=== PATIENT | female | born 1965 | race African-American/Black ===

== ENCOUNTER 2016-08-30 09:19 | Emergency (ER) | payer MEDICAID ==
[~2016-08-30] VITALS: Ht 134.6 cm; Wt 109.1 kg
[~2016-08-30 09:19] MED LIST: ACET325T33 PO; AMLO-218 PO; ARIP15TA2 PO; ASPI81TA50 PO; ATOR20TA38 PO; CARV12.598 PO; CITA10TA72 PO; CLON-379 PO; EFV600C PO; ESOM40CA PO; FAMO20TA18 PO; GABA-526 PO; HAL2 PO; HYDR-3672 PO; INSU100C SC; LACT10SO5 PO; LANT3I SC; LEVO25TA53 PO; LORA1TAB PO; LOSA100T47 PO; MECL-77 PO; MTF1000T PO; MULT1TAB13 PO; OXYC-281 PO; POLY15DR42 BOTH EYES; TEMA15CA6 PO; TENO300T2 PO
[2016-08-30 09:25] VITALS: Ht 134.6 cm; Wt 109.1 kg
[2016-08-30] MEDS ORDERED: IPRATROPIUM (NEB) 0.5 MG/2.5 ML AMP INH STA (09:28)
[2016-08-30] MEDS ORDERED: ALBUTEROL 0.5% (NEB) 2.5 MG/0.5 ML AMP INH STA (09:28)
--- NOTE | 2016-08-30 09:59 | RADRPT ---
PROCEDURE: Chest 1 views. CLINICAL INDICATION: Chest pain TECHNIQUE: AP views of the chest was obtained. COMPARISON: December 11, 2014 FINDINGS: The heart is large. Elevation of the right hemidiaphragm appears chronic. Associated atelectasis/co nsolidation right middle and lower lobes is observed. Scattered atelectasis is noted in the left lo wer lobe. No pneumothorax as visualized. The osseous structures are osteopenic, but appear grossly intact. Degenerative changes are seen in the shoulders. IMPRESSION: Cardiomegaly . Chronic elevation of the right hemidiaphragm with associated atelectasis/consolidation of the right middle and lower lobes. Scattered atelectasis in the left lower lobe. RPTAT: AA .Shiva Ceballos MD, Date Time Electronically viewed and signed by .Shiva Ceballos MD, on 08/30/2016 09:59 .P/
[2016-08-30 10:20] LABS: ADD SCAN DIFF NO
[2016-08-30 10:24] LABS: BASOPHILS % 0.5 % (0.0-2.0); EOSINOPHILS # 0.2 10^3/ul (0.0-0.5); EOSINOPHILS % 3.1 % (0.0-7.0); HEMOGLOBIN 11.5 g/dl (12.0-16.0); LYMPHOCYTES # 1.3 10^3/ul (0.8-2.9); MEAN CORPUSCULAR HEMOGLOBIN 31.3 pg (29.0-33.0); MEAN CORPUSCULAR HGB CONC 32.9 g/dl (32.0-37.0); MEAN CORPUSCULAR VOLUME 95.4 fl (82.0-101.0); MEAN PLATELET VOLUME 9.5 fl (7.4-10.4); MONOCYTE # 0.4 10^3/ul (0.3-0.9); MONOCYTES % 6.3 % (0.0-11.0); NEUTROPHIL # 4.4 10^3/ul (1.6-7.5); NEUTROPHILS % 69.6 % (39.0-77.0); PLATELET COUNT 278 10^3/UL (140-415); RED BLOOD COUNT 3.67 10^6/ul (4.20-5.40); RED CELL DISTRIBUTION WIDTH 14.7 % (11.5-14.5); WHITE BLOOD COUNT 6.4 10^3/ul (4.8-10.8)
[2016-08-30 10:40] LABS: INR 0.95; PARTIAL THROMBOPLASTIN TIME 27.5 Sec (25.0-35.0); PROTIME 12.7 Sec (12.2-14.2)
[2016-08-30 10:42] LABS: ANION GAP 12 (8-16); BLOOD UREA NITROGEN 18 mg/dl (7-20); CALCIUM 9.6 mg/dl (8.4-10.2); CARBON DIOXIDE 30 mmol/L (21-31); CHLORIDE 107 mmol/L (97-110); CREATININE 0.98 mg/dl (0.44-1.00); GLUCOSE 117 mg/dl (70-220); POTASSIUM 4.1 mmol/L (3.5-5.1); SODIUM 145 mmol/L (135-144)
[2016-08-30 10:54] LABS: B-TYPE NATRIURETIC PEPTIDE 272 PG/ML (0-125)
[2016-08-30 10:55] LABS: TROPONIN-I < 0.012 ng/ml (0.00-0.12)
[2016-08-30] MEDS ORDERED: morphine 4 MG/ML VIAL IV STA (11:10)
[2016-08-30] MEDS ORDERED: ARIP10TA13 PO (11:12)
[2016-08-30] MEDS ORDERED: ALBU2.5V3 NEB (11:15)
--- NOTE | 2016-08-30 11:15 | ERD ---
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 This patient does have a history of COPD and is on home oxygen. She states that she has been feeling more short of breath and has had a cough which has been dry. She denies any production of sputum. She states that her whole body hurts and she came to the ER for evaluation today. The patient is denying any relieving factors for her symptoms ROS All systems reviewed and are negative except as per history of present illness. Medications Home Meds Reported Medications Acetaminophen* (Tylenol*) 325 Mg Tablet, 650 MG PO Q4 Y for PAIN AND OR ELEVATED TEMP, TAB 12/11/14 Tenofovir Disoproxil Fumarate (Viread) 300 Mg Tablet, 300 MG PO DAILY, TAB 12/11/14 Temazepam* (Restoril*) 15 Mg Capsule, 15 MG PO HS Y for INSOMNIA, CAP 12/11/14 Oxycodone Hcl-Acetaminophen* (Percocet*) 5-325 Mg Tablet, 1 TAB PO Q4H Y for PAIN, TAB 12/11/14 Amlodipine Besylate* (Norvasc*) 10 Mg Tablet, 10 MG PO DAILY, TAB 12/11/14 Esomeprazole Mag Trihydrate (Nexium) 40 Mg Capsule.dr, 40 MG PO DAILY, CAP 12/11/14 Multivitamins/Minerals* (Multivitamin w/Minerals*) 1 Tab Tablet, 1 TAB PO DAILY , TAB 12/11/14 Meclizine Hcl* (Meclizine Hcl*) 25 Mg Tablet, 50 MG PO Q6 Y for VERTIGO, TAB 12/11/14 Atorvastatin Calcium* (Atorvastatin Calcium*) 20 Mg Tablet, 20 MG PO HS, TAB 12/11/14 Levothyroxine Sodium* (Levothyroxine Sodium*) 25 Mcg Tablet, 25 MCG PO AC BREAKFAST, TAB 12/11/14 Insulin Glargine* (Lantus*) 100 Unit/Ml Soln, 25 UNIT SC HS, EA 12/11/14 Lactulose* (Lactulose*) 10 Gm/15 Ml Solution, 30 ML PO BID Y for CONSTIPATION, ML 12/11/14 Hydralazine Hcl* (Hydralazine Hcl*) 50 Mg Tablet, 50 MG PO QID Y for ELEVATED BLOOD PRESSURE, TAB 12/11/14 Insulin Lispro (Humalog) 100 U/Ml Cartridge, 0 SC SLIDING SCALE AC, EA 12/11/14 Haloperidol* (Haldol*) 2 Mg Tab, 2 MG PO BID, TAB 12/11/14 Metformin* (Glucophage*) 1,000 Mg Tablet, 1000 MG PO BID, TAB 12/11/14 Gabapentin* (Gabapentin*) 600 Mg Tablet, 600 MG PO TID, TAB 12/11/14 Famotidine* (Famotidine*) 20 Mg Tablet, 20 MG PO AC BREAKFAST, TAB 12/11/14 Efavirenz* (Sustiva*) 600 Mg Tab, 600 MG PO AC BREAKFAST, TAB 12/11/14 Losartan Potassium* (Cozaar*) 100 Mg Tablet, 100 MG PO DAILY, TAB 12/11/14 Carvedilol* (Coreg*) 12.5 Mg Tablet, 12.5 MG PO BID, TAB 12/11/14 Clonidine Hcl* (Clonidine Hcl*) 0.1 Mg Tab, 0.1 MG PO Q6 Y for ELEVATED BLOOD PRESSURE, TAB 12/11/14 Citalopram Hydrobromide* (Celexa*) 10 Mg Tablet, 30 MG PO DAILY, TAB 12/11/14 Lorazepam* (Lorazepam*) 1 Mg Tablet, 1 MG PO BID Y for ANXIETY, TAB 12/11/14 Aspirin (Aspir-Low) 81 Mg Tablet.dr, 81 MG PO DAILY 12/11/14 Artificial Tears* (Artificial Tears* Ophth) 15 ml Opht, 1 DROP BOTH EYES BID, EA 12/11/14 Aripiprazole* (Abilify*) 15 Mg Tablet, 15 MG PO DAILY, TAB 12/11/14 Allergies Allergies: Coded Allergies: Fish Containing Products (Unverified Allergy, Unknown, 12/11/14) Uncoded Allergies: SEAFOOD (Allergy, Unknown, 12/11/14) PMhx/Soc History of Surgery: Yes Anesthesia Reaction: No Hx Neurological Disorder: No Hx Respiratory Disorders: Yes (asthma ) Hx Cardiac Disorders: Yes (SC) Hx Psychiatric Problems: Yes (SCHIZOPHRENIA ) Hx Miscellaneous Medical Probl: Yes (Multiple sclerosis, bilater below knee amputation) Hx Alcohol Use: No Hx Substance Use: Yes (cocaine) Hx Tobacco Use: No Smoking Status: Former smoker Physical Exam Vitals Vital Signs Date Time Temp Pulse Resp B/P Pulse Ox O2 Delivery O2 Flow Rate FiO2 08/30/16 10:00 Nasal Cannula 3 08/30/16 09:46 87 20 97 Nasal Cannula 3.0 08/30/16 09:46 3.0 08/30/16 09:25 98.4 93 24 173/88 100 Physical Exam INITIAL VITAL SIGNS: Reviewed by me GENERAL: The patient is well developed and appropriate for usual state of health in no apparent distress HEENT: Pupils equal, round, and reactive to light. EOMI. There is no scleral icterus. NECK: C-spine is soft and supple, there is no meningismus. There is no cervical lymphadenopathy. LUNGS: Diminished bilaterally. There are no rales, wheezes or rhonchi. HEART: Regular rate and rhythm, no murmurs, clicks, rubs or gallops. ABDOMEN: Soft, non-tender, non-distended. There are bowel sounds in all four quadrants. No rebound or guarding. EXTREMITIES: Bilateral AKA's NEUROLOGICAL: The patient moves all four extremities with 5/5 strength. Cranial nerves II - XII are intact. Normal gait. Alert and oriented SKIN: There is no apparent rash or petechiae. HEME/LYMPHATIC: There is no evidence of excessive bruising or lymphedema. PSYCHIATRIC: The patient does not appear anxious or depressed. Result Diagram: 08/30/16 1010 08/30/16 1010 Results 24 hrs Laboratory Tests Test 08/30/16 10:10 White Blood Count 6.410^3/ul Red Blood Count 3.6710^6/ul Hemoglobin 11.5g/dl Hematocrit 35.0% Mean Corpuscular Volume 95.4fl Mean Corpuscular Hemoglobin 31.3pg Mean Corpuscular Hemoglobin Concent 32.9g/dl Red Cell Distribution Width 14.7% Platelet Count 92265^3/UL Mean Platelet Volume 9.5fl Neutrophils % 69.6% Lymphocytes % 20.0% Monocytes % 6.3% Eosinophils % 3.1% Basophils % 0.5% Nucleated Red Blood Cells % 0.0/100WBC Neutrophils # 4.410^3/ul Lymphocytes # 1.310^3/ul Monocytes # 0.410^3/ul Eosinophils # 0.210^3/ul Basophils # 0.010^3/ul Nucleated Red Blood Cells # 0.010^3/ul Prothrombin Time 12.7Sec Prothrombin Time Ratio 1.0 INR International Normalized Ratio 0.95 Activated Partial Thromboplast Time 27.5Sec Sodium Level 145mmol/L Potassium Level 4.1mmol/L Chloride Level 107mmol/L Carbon Dioxide Level 30mmol/L Anion Gap 12 Blood Urea Nitrogen 18mg/dl Creatinine 0.98mg/dl Glucose Level 117mg/dl Calcium Level 9.6mg/dl Troponin I < 0.012ng/ml B-Type Natriuretic Peptide 272PG/ML Current Medications Medications (Trade) Dose Ordered Sig/Rekha Route PRN Reason Start Time Stop Time Status Last Admin Dose Admin Albuterol (Proventil 0.5% (Neb)) 10 mg ONCE STAT INH 08/30/16 09:28 08/30/16 09:29 DC 08/30/16 09:45 Ipratropium Newberg (Atrovent 0.02% (Neb)) 1 mg ONCE STAT INH 08/30/16 09:28 08/30/16 09:29 DC 08/30/16 09:45 Procedures/MDM EKG: Rate/Rhythm: [Normal Sinus Rhythm] QRS, ST, T-waves: [No changes consistent w/ acute ischemia] Impression: [No evidence of ischemia or arrhythmia] Chest X-ray 1V Interpreted by me: Soft Tissue: Right middle lobe and right lower lobe pneumonia Bones: No acute abnormalities Mediastinum/Cardiac Silhouette/Lungs: [No acute abnormalities] This 51-year-old female presents to the emergency room for evaluation of shortness of breath. When I evaluated this patient she did have diminished breath sounds bilaterally however she was not hypoxic, afebrile, and in no respiratory distress. The patient was given a breathing treatment and x-ray and lab work was obtained. X-ray does reveal right middle lobe and right lower lobe pneumonia. Lab work does not demonstrate leukocytosis. The patient was given oral Levaquin in the emergency room and given the fact that she does not have any signs of systemic infection the patient will be discharged home with a prescription for Levaquin to take over the course of the next week for pneumonia Departure Diagnosis: Primary Impression: Right middle lobe pneumonia Additional Impressions: Normocytic anemia Diabetes mellitus COPD (chronic obstructive pulmonary disease) Condition: Stable PORFIRIO LOPEZ DO Aug 30, 2016 11:15
[2016-08-30] MEDS ORDERED: DOCU-159 PO ×2 (11:18→11:40)
[2016-08-30] MEDS ORDERED: BEN25 PO (11:18)
[2016-08-30] MEDS ORDERED: LEVO750T25 PO (11:19)
[2016-08-30] MEDS ORDERED: LEVOFLOXACIN 750 MG TABLET PO ONE (11:30)
[2016-08-30] MEDS ORDERED: EMTR200 PO (11:44)
[2016-08-30] MEDS ORDERED: DAL15 PO (11:44)
[2016-08-30] MEDS ORDERED: GLUC1KIT2 IJ (11:45)
[2016-08-30] MEDS ORDERED: INSU100C SQ (11:47)
[2016-08-30] MEDS ORDERED: NOVO3I SC ×2 (11:49→11:50)
[2016-08-30] MEDS ORDERED: ISOS30TA5 PO (11:51)
[2016-08-30] MEDS ORDERED: LEVO50TA74 PO (11:51)
[2016-08-30] MEDS ORDERED: LORA1TAB PO (11:52)
[2016-08-30] MEDS ORDERED: MAG355OR14 PO (11:55)
[2016-08-30] MEDS ORDERED: PANT40TA4 PO (11:57)
[2016-08-30] MEDS ORDERED: HYDR-906 PO (11:57)
[2016-08-30] MEDS ORDERED: MCN2C47 VAGINAL (11:59)
[2016-08-30] MEDS ORDERED: ZOLP10TA5 PO (12:00)
[2016-08-30] MEDS ORDERED: HYDR-3671 PO (12:06)
[2016-08-30 13:00] VITALS: BP 155/80; PULSE 82; RESP 20; TEMP 97.5
== END 2016-08-30 13:25 | disposition home or self-care (01) ==
LOC: E/R 09:19
DX: J18.9 Pneumonia, unspecified organism (principal); D64.9 Anemia, unspecified; E11.9 Type 2 diabetes mellitus without complications; J44.9 Chronic obstructive pulmonary disease, unspecified; J45.909 Unspecified asthma, uncomplicated; Z79.82 Long term (current) use of aspirin; Z79.4 Long term (current) use of insulin; Z89.512 Acquired absence of left leg below knee; Z89.511 Acquired absence of right leg below knee
CPT/HCPCS: 36415; 71010; 80048; 82962; 83880; 84484; 85025; 85610; 85730; 93005; 94644; 96374; J2270; Z7502; Z7610